=== PATIENT | male | born 1940 | race Asian ===

== ENCOUNTER 2017-01-07 15:12 | Emergency (ER) | payer MEDICARE, MEDICAID ==
[~2017-01-07 15:12] MED LIST: FLEXERIL10 MG PO; FLOMAX0.4 M1 PO; NORCO 5/325 TAB1 TAB PO; SENOKOT-S TABL1 EACH PO; TYLENOL EXTRA500 M1 PO
[2017-01-07] MEDS ORDERED: OMEPRAZOLE20 M3 PO (15:18)
[2017-01-07] MEDS ORDERED: NAPROXEN250 M1 PO (15:18)
[2017-01-07] MEDS ORDERED: PAZEO2.5 ML OP (15:19)
[2017-01-07 16:16] LABS: BASO % 0.2 % (0-2); EOS % 0.7 % (0-7); HCT-HEMATOCRIT 30.4 % (36.0-53.5); HGB-HEMOGLOBIN 10.8 gm/dl (13.5-17.0); IMMATURE GRANULOCYTES ABSOLUTE 0.01 tho/cmm (0-0.03); IMMATURE GRANULOCYTES PERCENT 0.2 % (0-0.3); LYMPH ABSOLUTE COUNT 0.7 tho/cmm (0.8-4.5); MCH (MEAN CORPUSCULAR HGB) 23.2 pg (28.0-32.0); MCHC MEAN CORPUSCULAR HGB CONC 35.5 % (32.0-36.0); MCV (MEAN CELL VOLUME) 65.4 fl (82.0-96.0); MONO % 11.5 % (0-12); MONOCYTE ABSOLUTE COUNT 0.5 tho/cmm (0.0-1.2); NEUTROPHIL ABSOLUTE COUNT 2.8 tho/cmm (1.6-8.0); NEUTROPHIL-AUTOMATED 2.8 tho/cmm (1.6-8.0); NEUTROPHILS % 69.4 % (40-80); RED BLOOD COUNT 4.65 mil/cmm (4.40-5.70); RED CELL DISTRIBUTION WIDTH 14.8 % (12.4-16.4); WHITE BLOOD COUNT 4.1 tho/cmm (4.0-10.0)
[2017-01-07 16:31] LABS: ANION GAP 10 mmol/L (0-20); BLOOD UREA NITROGEN 20 mg/dl (6-24); CARBON DIOXIDE-VENOUS 27 mmol/L (22-32); CHLORIDE 103 mmol/l (96-110); CREATININE 1.23 mg/dl (0.60-1.30); GLUCOSE 113 mg/dL (70-110); POTASSIUM 4.3 mmol/L (3.7-5.1); SODIUM 136 mmol/L (135-145); eGFR VALUE FOR BLACK 66 mL/Min
[2017-01-07 16:36] LABS: PLATELET COUNT 73 tho/cmm (150-450)
[2017-01-07 16:37] LABS: PLATELET MORPHOLOGY MACRO
== END 2017-01-07 17:50 ==
LOC: EDMED 15:12
PROVIDERS: Emergency Medicine
DX: B34.9 Viral infection, unspecified (principal); R55 Syncope and collapse; Z98.890 Other specified postprocedural states; Z87.891 Personal history of nicotine dependence